=== PATIENT | female | born 1985 | race Caucasian/White ===

== ENCOUNTER 2019-05-11 12:44 | Emergency (ER) | payer SELFPAY ==
[2019-05-11] VITALS (54 sets, daily range): BP systolic 110–134; BP diastolic 61–77; PULSE 83–107; RESP 13–28; TEMP 37; O2SAT 94–100
--- NOTE | 2019-05-11 12:58 | NUR.NOTE ---
Nursing Note: pt has had defuse chest and back pain that started yesterday morning pt describes pain as right and sore to move pt states that walking alleviates the pain however deep breaths precipitate the pain
--- NOTE | 2019-05-11 13:01 | NUR.NOTE ---
Nursing Note: pt has had defuse chest and back pain that started yesterday morning pt describes pain as right and sore to move pt states that walking alleviates the pain however deep breaths precipitate the pain. pt states that she has also had a fever at home 1100 temp of 100.5F pt is currently 98.6 however PT stated she had been taking ibuprofen for pain/ fever
[2019-05-11 13:36] LABS: Abs Immature Grans 0.01 k/cumm (0.0-0.09); Absolute Basophil Count 0.01 k/cumm (0.0-0.2); Absolute Eosinophil Count 0.01 k/cumm (0.0-0.7); Absolute Lymphocyte Count 0.71 k/cumm (1.2-3.4); Absolute Monocyte Count 0.54 k/cumm (0.11-0.7); Basophils % 0.2; Eosinophils % 0.2; HCT 37.1 % (36.0-46.0); HGB 12.3 g/dL (12.0-15.5); Immature Grans % 0.2; Lymphocytes % 11.1; Mean Corp. HGB Concentration 33.2 g/dL (32.0-36.0); Mean Corpuscular Hemoglobin 30.3 pg (27.0-33.0); Mean Corpuscular Volume 91.4 fL (80-95); Monocytes % 8.5; Neutrophils % 79.8; Platelet Count 232 x1000/uL (130-400); RBC 4.06 m/cumm (4.00-5.20); RBC Distribution Width 12.6 % (11.7-14.6); White Blood Cell Count 6.38 k/cumm (4.4-10.8)
[2019-05-11 13:55] LABS: ALT 18 U/L (12-78); AST 12 U/L (15-37); Albumin 3.6 g/dL (3.4-5.0); Alkaline Phosphatase 57 U/L (46-116); Anion Gap 10.2 mmol/L (3-11); BUN 10 mg/dL (7-18); Bilirubin, Total 0.2 mg/dL (0.2-1.0); CO2 25.8 mmol/L (21.0-32.0); CREATININE 0.77 mg/dL (0.55-1.02); Calcium 8.8 mg/dL (8.5-10.1); Chloride 103 mmol/L (98-107); Glucose 93 mg/dL (70-100); Magnesium 1.8 mg/dL (1.8-2.4); Potassium 3.9 mmol/L (3.5-5.1); Sodium 139 mmol/L (136-145); Total Protein 7.7 g/dL (6.4-8.2)
[2019-05-11 14:00] LABS: Troponin I < 0.05 ng/mL (0.00-0.06)
--- NOTE | 2019-05-11 14:12 | W.ED.GENAD ---
Discharge Plan Disposition Patient Disposition: HOME Discharge Details Chief Complaint: Chest/Rib Clinical Impression: Chest pain, Lymph node enlargement Primary Care Provider: Trini Miranda ED Provider: Jesus Davey Home Meds and New Rx's Prescriptions: No Action norgestimate-ethinyl estradiol [Sprintec (28)] 1 EACH tablet 1 tab-cap PO DAILY 84 Days Qty: 84 RF: 4 Discharge Instructions Instructions: Chest Pain (ED) Additional Instructions: The CT scan that was performed today was interpreted by radiology as having to retroperitoneal pathologic lymph nodes. This finding will require timely follow-up for additional outpatient diagnostic testing. A referral has been sent to [facility] for follow-up. Please contact [facility] on Monday to schedule timely follow-up. Please take ibuprofen over the counter. Take 600mg by mouth every 6 hours as needed for pain. Please take acetaminophen (tylenol) - 650mg every 6 hours by mouth as needed for pain. Return to the ED for any worsening or new concerning symptoms. Medical Decision Making <Adilson Hutchins NP - Last Filed: 05/11/19 19:18> Patient presenting to the emergency department for chief complaint of chest pain. Patient states that this seemed to start out in her back and radiates through her chest. She does state a slight fever before presenting today. She does state some dyspnea along with this. Patient denies any abdominal pain, heartburn, rash. Physical exam shows a anxious 34-year-old female with otherwise no other acute signs of distress. Normal cardiac and respiratory exam, no abdominal tenderness, no other worrisome findings. Plan to check labs and chest x-ray. Patient does state that she took ibuprofen just prior to arrival. EKG reviewed with attending physician Dr. Amber Rodríguez and shows sinus rhythm, rate of 90, no STEMI, nondiagnostic. Review of labs show unremarkable CBC, negative d-dimer, unremarkable CMP, negative troponin. Chest x-ray reviewed along with radiologist interpretation shows no acute findings. Patient reassessed and states that she is continued have pain and discomfort. Given the patient is complaining of back pain with radiation to the chest and some shortness of breath consideration of aortic dissection or aneurysm is possibility but I do feel this is low risk. Thorough discussion with patient about risk versus benefit of performing the study was performed and after discussion we decided to proceed with the CT imaging. <Jesus Davey MD - Last Filed: 05/11/19 19:10> 16:15 --care signed out by CECILIA Hutchins. Please see his documentation regarding initial ED presentation and course. Of note, labs and ECG unremarkable. Plan at signout was to follow-up on CTA of the chest. 18:10 --CT of the chest was interpreted by radiology: No acute findings. No aortic aneurysm. No aortic dissection. No pulmonary emboli. Lungs unremarkable with no masses or consolidation. Heart unremarkable. Lymph nodes unremarkable. CTA of the abdomen and pelvis was reviewed and interpreted by radiology: Broad-based disc bulge at L5-S1 may represent degenerative disc disease. Recommend MRI if clinically indicated. Pathologic node in the left retroperitoneum 12 x 10 mm (4:74). Pathologic node in the left retroperitoneum 12 x 10 mm (4:70). Recommend further evaluation. Patient was reassessed and still has some chest discomfort. Back pain resolved. Unclear etiology at this point given negative CT and negative troponin x2. I will repeat ECG. I will treat discomfort with Pepcid 20 mg IV as well as Toradol 15 mg IV and Tylenol PO. All results were reviewed with the patient. Patient understands importance of timely follow-up. I will ask for timely outpatient follow-up for patient to be seen within one week for coordination of further diagnostic workup of pathologic nodes noted on CT. 18:37 -- repeat ecg reviewed and interpreted by me: nsr 93bpm, no ischemic changes. 19:10 --patient reassessed and notes feeling better sitting up. Vitals stable. Disposition decision was made weighing the risks and benefits of hospitalization versus outpatient treatment, the risk for further decompensation, and the patient's wishes. The patient was stable and requested discharge. Prior to discharge, my usual and customary return precautions were reviewed with the patient - this included follow-up instructions and reason to return to the emergency department if condition worsens, does not improve as expected, or other new concerns arise. HPI <Adilson Hutchins NP - Last Filed: 05/11/19 19:18> General Mode of arrival: ambulatory. Date/Time Provider Initiated Documentation: 05/11/19 13:02. Limitations to Documentation: no limitations. Information obtained by: patient and RN notes reviewed. History of Present Illness 34 year old F presents to the emergency department with the chief complaint of Back and chest pain, described as moderate, with intensity rated at 5. Quality is described as sharp, and is localized to the chest and back. Patient started experiencing this day(s) (1) and it has been constant. Patient notes fever/chills. Patient did receive the following treatments prior to arrival, NSAID Related Data Home Medications Medication Instructions Recorded Confirmed norgestimate-ethinyl estradiol 1 tab-cap PO DAILY 84 Days #84 05/18/18 05/11/19 [Sprintec] tab-cap Previous Rx's Medication Instructions Recorded norgestimate-ethinyl estradiol 1 tab-cap PO DAILY 84 Days #84 05/18/18 [Sprintec] tab-cap Allergies Allergy/AdvReac Type Severity Reaction Status Date / Time No Known Allergies Allergy Unverified 05/11/19 19:05 General Stated Complaint: Chest/Rib JOSE: 4 Review of Systems <Adilson Hutchins NP - Last Filed: 05/11/19 19:18> Constitutional Denies chills, Denies fever(s) and Denies malaise Cardiovascular Reports as per HPI, Reports chest pain, Denies chest pain with activity, Denies syncope, Denies irregular heart rhythm, Denies leg edema, Denies palpitations and Reports dyspnea Respiratory Denies cough, Denies hemoptysis and Reports dyspnea Gastrointestinal Denies abdominal pain, Denies dyspepsia, Denies heartburn, Denies nausea and Denies vomiting Musculoskeletal Reports back pain and Denies myalgias Neurologic Denies syncope Endocrine Denies palpitations PFSH <Adilson Hutchins NP - Last Filed: 05/11/19 19:18> Family History Mother No problems noted. Father Essential hypertension Sister No problems noted. Grandfather No problems noted. Grandfather Personal history of malignant neoplasm Grandmother Stroke Grandmother No problems noted. Son No problems noted. Social History Smoking/Tobacco Use Status: Never Drug use: Never Do you feel safe at home: Yes Do you feel safe in your relationship?: Yes Exam <Adilson Hutchins NP - Last Filed: 08/17/19 19:18> Const General: cooperative, healthy appearing, comfortable, no acute distress, anxious, not diaphoretic and not ill appearing Nutritional Appearance: average body habitus Orientation: alert, awake and oriented x3 Limitations: mental status not altered Neck Neck: normal visual inspection, full ROM, trachea midline, supple and no anterior neck swelling Carotids: normal carotid upstroke and no bruits Chest Chest: normal inspection of the chest, no localized rib tenderness and no tenderness Resp Effort & Inspection: normal respiratory effort and able to speak in complete sentences Auscultation: clear to auscultation bilaterally Cardio Jugular venous pressure: no JVD Palpation: normal PMI Rate: regular rate Rhythm: regular rhythm Heart Sounds: S1 normal, S2 normal, no click, no gallops, no murmurs and no rubs Bruits: no abdominal aortic bruits and no carotid bruits Pulses: radial pulses present bilaterally 2+ GI Inspection: normal to inspection Palpation: soft, no aortic enlargement, no pulsatile masses and nontender Auscultation: normal bowel sounds Back/Spine/Pelvis Thoracic/Lumbar Spine: thoracic and lumbar spine normal to inspection, No paraspinal tenderness, No thoraco-lumbar spasm, No thoracic spinal tenderness and No lumbar spinal tenderness Skin General skin exam: no rashes or lesions noted Neuro General: alert, awake, oriented x3, tone normal and moves all extremities Course <Adilson Hutchins NP - Last Filed: 05/11/19 19:18> Vital Signs Temperature 37.0 C 05/11/19 13:02 Pulse 92 H 05/11/19 13:02 Respiratory Rate 16 05/11/19 13:02 Blood Pressure 124/72 05/11/19 13:02 Pulse Oximetry 94 L 05/11/19 13:02 Temperature 37.0 C 05/11/19 13:02 Temperature Source Skin 05/11/19 13:02 Pulse 92 H 05/11/19 13:02 Respiratory Rate 16 05/11/19 13:02 Blood Pressure 124/72 05/11/19 13:02 Blood Pressure Position Sitting 05/11/19 13:02 Pulse Oximetry 94 L 05/11/19 13:02 Oxygen Delivery Method Room Air 05/11/19 13:02 Oxygen Flow Rate 0 05/11/19 13:02 Pain Level 3 05/11/19 13:02 Lab/Test Results Lab/Test Results: Laboratory Tests Range/Units 05/11/19 05/11/19 13:30 13:30 WBC (4.4-10.8) k/cumm 6.38 RBC (4.00-5.20) m/cumm 4.06 Hgb (12.0-15.5) g/dL 12.3 Hct (36.0-46.0) % 37.1 MCV (80-95) fL 91.4 MCH (27.0-33.0) pg 30.3 MCHC (32.0-36.0) g/dL 33.2 RDW (11.7-14.6) % 12.6 Plt Count (130-400) x1000/uL 232 MPV (8.0-11.0) fL 12.0 H Immature Gran % 0.2 Neutrophils % 79.8 Lymphocytes % 11.1 Monocytes % 8.5 Eosinophils % 0.2 Basophils % 0.2 Absolute Neutrophils (1.2-6.7) k/cumm 5.10 Absolute Lymphocytes (1.2-3.4) k/cumm 0.71 L Absolute Monocytes (0.11-0.7) k/cumm 0.54 Absolute Eosinophils (0.0-0.7) k/cumm 0.01 Absolute Basophils (0.0-0.2) k/cumm 0.01 Sodium (136-145) mmol/L 139 Potassium (3.5-5.1) mmol/L 3.9 Chloride (98-107) mmol/L 103 Carbon Dioxide (21.0-32.0) mmol/L 25.8 Anion Gap (3-11) mmol/L 10.2 BUN (7-18) mg/dL 10 Creatinine (0.55-1.02) mg/dL 0.77 Estimated GFR/1.73 m2 (mL/min/1.73m2) >= 60.00 Glucose (70-100) mg/dL 93 Calcium (8.5-10.1) mg/dL 8.8 Magnesium (1.8-2.4) mg/dL 1.8 Total Bilirubin (0.2-1.0) mg/dL 0.2 AST (15-37) U/L 12 L ALT (12-78) U/L 18 Alkaline Phosphatase (46-116) U/L 57 Troponin I (0.00-0.06) ng/mL < 0.05 Total Protein (6.4-8.2) g/dL 7.7 Albumin (3.4-5.0) g/dL 3.6 Sign Out <Adilson Hutchins NP - Last Filed: 05/11/19 19:18> Sign Out Data: Sign Out Comment: Patient pending CT imaging for complaint of chest and back pain. This performed to rule out any aortic abnormality or for further evaluation. Last updated by Adilson Hutchins NP at 05/11/19 16:12
--- NOTE | 2019-05-11 14:36 | DI.RAD_ITS ---
SYMPTOM/DIAGNOSIS: CHEST PAIN PA AND LATERAL CHEST: The heart is normal in size. The lungs are clear. The mediastinal structures and pleura appear intact. CONCLUSION: Normal chest.
[2019-05-11 14:38] LABS: D-Dimer 306 ng/mlFEU (<500)
--- NOTE | 2019-05-11 15:06 | DI.VRAD_ITS ---
EXAM: XR Chest, 2 Views EXAM DATE/TIME: 05/11/2019 1:12 PM CLINICAL HISTORY: 34 years old, female; Type not specified; Patient HX: Chest pain. TECHNIQUE: Imaging protocol: XR of the chest, 2 views. COMPARISON: CR CHEST 2 VIEWS PA,LAT 07/07/2014 6:11 PM FINDINGS: Lungs: Unremarkable. No consolidation. Pleural space: Unremarkable. No pleural effusion. No pneumothorax. Heart/Mediastinum: Unremarkable. No cardiomegaly. Bones/joints: Unremarkable. IMPRESSION: No acute findings. Dictated and Authenticated by: Wes Villalobos MD. Ordering:GEOFF De Anda MD
--- NOTE | 2019-05-11 15:24 | DI.CT_ITS ---
SYMPTOM/DIAGNOSIS: CHEST AND BACK PAIN, EVALUATE FOR ANEURYSM PE CHEST CT: CT angiography was performed with multi slice acquisition and multi planar and 3D reconstruction. CT angiography of the chest, abdomen and pelvis was performed with a bolus infusion of 100 cc's of Omnipaque 350. The lungs are clear. Tracheobronchial tree appears intact. No mediastinal or hilar adenopathy. No evidence of pulmonary embolic disease. Unremarkable appearance of thoracic aorta. No pleural effusion or pleural based mass. Abdominal aorta is of normal diameter and major branches are intact. Note is made of hepatic steatosis without focal hepatic abnormality. Pancreas is unremarkable in appearance. Adrenals and kidneys appear normal. No significant abdominal or pelvic adenopathy. Unremarkable appearance of [employer] structures. Normal appendix. No evidence of diverticulitis or bowel obstruction. Spleen is unremarkable. CONCLUSION: Negative CT angiography chest, abdomen and pelvis.
[2019-05-11] MEDS: Omnipaque 350 MG/ML 100 ML BTL IJ (16:38)
[2019-05-11 16:54] LABS: Troponin I < 0.05 ng/mL (0.00-0.06)
--- NOTE | 2019-05-11 17:16 | DI.VRAD_ITS ---
EXAM: CT Angiography Chest With Contrast EXAM DATE/TIME: 05/11/2019 3:26 PM CLINICAL HISTORY: 34 years old, female; Chest pain; Other: Back pain; Additional info: Incorrect amount of images, did not send thins TECHNIQUE: Imaging protocol: Axial computed tomographic angiography images of the chest with intravenous contrast using CT angiography protocol. Coronal and sagittal reformatted images were created and reviewed. 3D rendering: MIP reconstructed images were created and reviewed. COMPARISON: CR XR CHEST 2V PA LATERAL 05/11/2019 2:37 PM FINDINGS: Pulmonary arteries: Normal. No pulmonary emboli. Aorta: Unremarkable. No aortic aneurysm. No aortic dissection. Lungs: Unremarkable. No consolidation. No masses. Pleural space: Unremarkable. No pneumothorax. No pleural effusion. Heart: Unremarkable. No cardiomegaly. No pericardial effusion. Lymph nodes: Unremarkable. No enlarged lymph nodes. Bones/joints: Unremarkable. No acute fracture. Soft tissues: Unremarkable. IMPRESSION: No acute findings. EXAM: CT Angiography Abdomen and Pelvis With Contrast EXAM DATE/TIME: 05/11/2019 3:26 PM CLINICAL HISTORY: 34 years old, female; Chest pain; Other: Back pain; Additional info: Incorrect amount of images, did not send thins TECHNIQUE: Imaging protocol: Axial computed tomographic angiography images of the abdomen and pelvis with intravenous contrast material. Coronal and sagittal reformatted images were created and reviewed. 3D rendering: MIP reconstructed images were created and reviewed. COMPARISON: CR XR CHEST 2V PA LATERAL 05/11/2019 2:37 PM FINDINGS: VASCULATURE: Aorta: No aortic aneurysm. No aortic dissection. Celiac trunk and mesenteric arteries: No occlusion or significant stenosis. Renal arteries: No occlusion or significant stenosis. Right iliac arteries: No occlusion or significant stenosis. Left iliac arteries: No occlusion or significant stenosis. ABDOMEN: Liver: No mass. Gallbladder and bile ducts: Unremarkable. No calcified stones. No ductal dilation. Pancreas: Unremarkable. No mass. No ductal dilation. Spleen: Unremarkable. No splenomegaly. Adrenals: Unremarkable. No mass. Kidneys and ureters: Unremarkable. No solid mass. No hydronephrosis. Stomach and bowel: Unremarkable. No obstruction. No mucosal thickening. Appendix: Normal appendix PELVIS: Bladder: Unremarkable. No mass. Reproductive: Unremarkable as visualized. ABDOMEN and PELVIS: Intraperitoneal space: Unremarkable. No free air. No significant fluid collection. Bones/joints: Broad-based disc bulge at L5/S1 No acute fracture. No dislocation. Soft tissues: Umbilical hernia contains fat Lymph nodes: Pathologic node in the retroperitoneum 12 x 10 mm (4:74). Pathologic node in the left retroperitoneum 12 x 10 mm (4:70) IMPRESSION: Broad-based disc bulge at L5/S1 may represent degenerative disc disease. Recommend MRI if clinically indicated Pathologic node in the left retroperitoneum 12 x 10 mm (4:74). Pathologic node in the left retroperitoneum 12 x 10 mm (4:70). Recommend further evaluation Dictated and Authenticated by: Wes Villalobos MD. Ordering:GEOFF De Anda MD
--- NOTE | 2019-05-11 18:10 | NUR.NOTE ---
Referral faxed to [facility] Trini Miranda.Nursing Note:
[2019-05-11] MEDS: Ketorolac 15 MG/ML VIAL IVP (18:19)
[2019-05-11] MEDS: Acetaminophen 325 MG TAB 650 MG PO (18:20)
[2019-05-11] MEDS: FAMOTIDINE 20 MG/50 ML BAG 200 MG IVPB (18:20)
== END 2019-05-11 19:28 | disposition home or self-care (01) ==
PROVIDERS: Nurse Practitioner Family; Emergency Provider Student in an Organized Health Care Education/Training Program; PCP Nurse Practitioner Gerontology
DX: R07.9 Chest pain, unspecified (principal); R59.0 Localized enlarged lymph nodes
CPT/HCPCS: 36415; 74177; 80053; 81025; 93005; 96365; 96375; 99285; 71046; 83735; 84484; 85025; 85379; 93010; J1885; J3490

== ENCOUNTER 2019-07-10 10:36 | Outpatient (REF) | payer SELFPAY ==
--- NOTE | 2019-07-10 10:00 | PAPFT_PTH ---
PATIENT: ELIAS DAVILA LOC: [facility] U#:[id number] AGE/SX: 34/F ROOM: RE07/10/[address]: Ileana Velazquez NP : 1985 BED: DIS: 07/10/2019 SPEC #: [id number] RECD: 07/10/19 12:54 STATUS: SEAN PHELPS #: [id number] AL: 07/10/19 10:[address]: Ileana Velazquez NP DEPT: [facility] Cytology RECD BY: Veronica Davis ENTERED: 07/10/19 12:54 SP TYPE: PAPFT OTHR DR: Reta Colindres, PhD PHOTOGRAMMETRIC TECHNICIAN Tissues: 1 - CX/ENDOCX FOR PAP SMEARS Procedures: PAP THIN PREP/[facility] Screening HPV DNA PROBE Comments: [id number]
== END 2019-07-10 10:56 ==
LOC: LBN 10:36
PROVIDERS: PCP Nurse Practitioner; Visit Provider Nurse Practitioner Women's Health
DX: Z12.4 Encounter for screening for malignant neoplasm of cervix (principal); Z11.51 Encounter for screening for human papillomavirus (HPV)
CPT/HCPCS: 88142; 87624

== ENCOUNTER 2020-09-15 21:24 | Outpatient (REF) | payer SELFPAY ==
[2020-09-16 15:25] LABS: Chlamydia Result Negative (Negative); GC Result Negative (Negative)
== END 2020-09-15 21:44 ==
LOC: LBN 21:24
PROVIDERS: PCP Nurse Practitioner; Visit Provider Nurse Practitioner Family
DX: Z11.3 Encounter for screening for infections with a predominantly sexual mode of transmission (principal)
CPT/HCPCS: 87491; 87591

== ENCOUNTER 2025-03-06 12:07 | Outpatient (CLI) | payer SELFPAY ==
--- NOTE | 2025-03-06 12:00 | RT.EKG_ITS ---
APPROVED REPORT Exam: Resting ECG Reason for Exam: chest discomfort Patient Location: O HR:64 bpm ECG Measurements Heart Rate 64 AXIS WI 154 P 34 QRSd 92 QRS 79 QT 408 T 43 QTc 421 Conclusion Sinus rhythm...normal P axis, V-rate 50- 99 Normal Electrocardiogram
== END 2025-03-06 12:08 | disposition home or self-care (01) ==
PROVIDERS: PCP Nurse Practitioner Family; Visit Provider Nurse Practitioner Family
DX: R07.89 Other chest pain (principal); K21.9 Gastro-esophageal reflux disease without esophagitis
CPT/HCPCS: 93010